=== PATIENT | male | born 1940 | race Caucasian/White ===

== ENCOUNTER → 2019-06-27 10:28 | Outpatient (CLI) | payer SELFPAY | PROVIDERS: Referring Provider Otolaryngology; Visit Provider Otolaryngology | DX: R59.1 Generalized enlarged lymph nodes (principal) ==

== ENCOUNTER → 2019-07-04 09:00 | Outpatient (CLI) | payer MEDICARE, SELFPAY ==
--- NOTE | 2019-07-03 | IMM_PTH ---
PATIENT: JERAMIE DE PAZ LOC: [facility] U#:[id number] AGE/SX: 84/M ROOM: RE07/04/[address]: Dr. Shan Noguera MD : 1940 BED: DIS: SPEC #: [id number] RECD: 07/07/19 10:01 STATUS: HASMUKH REQ #: [id number] RAJI: 07/03/19 00:[address]: Shan Noguera DEPT: IMMUNOHISTOCHEMISTRY RECD BY: Sima Giraldo ENTERED: 07/07/19 10:04 SP TYPE: IMMUNO OTHR DR: Dr. Dimas Hoffman MD Tissues: Lymph node of neck, NOS Procedures: BCL-2 (add) BCL-6 (add) CD138 (add) CD15 (add) CD20 (add) CD3 (add) CD30 (add) CD43 (add) CD45 (add) CD5 (add) CD79A (add) CYCLIN (add) KI-67 (add) P53 (add) MUM1 (add) C-MYC (add) Pankeratin (initial) PHYSICIAN & [address] [address] SPECIMEN INFORMATION: Tissue Source: FNA right neck nodes Clinical Info: Bilateral lymphadenopathy Specimen Number: [id number] CPT code: 06889, 51776 x16 METHODOLOGY: Deparaffinized sections of prefer/formalin-fixed tissue or PAP/DQ stained slides are incubated with monoclonal/polyclonal antibodies/oligonucleotide probes. Localization is made via biotin free immunoperoxidase method. Appropriate controls are performed and reacted as expected. Results on target cell population are indicated in the following table: RESULTS: ANTIBODY / CLONE RESULT AE1-3 (AE1/AE3/PCK26) negative CD3 (PS1) negative CD5 (SP10) negative CD20 (L26) positive, dim CD45 (RP2/18) positive CD79a (11E3) positive BCL-2 (bcl-2/100/D5) positive, dim BCL-6 (WN535B/A8) negative P53 (DO-7) negative Ki-67 (30-9) positive, 80% Cyclin D1/BCL-1 (SP4) negative MUM1 (MRQ-43) negative C-MYC (Y69) negative CD138 (B-A38) negative CD43 (L60) positive CD30 (Joel-H2) negative CD15 (MMA) negative These tests were developed and their performance characteristics determined by [facility]. They may not have been cleared or approved by the U.S. Food and Drug Administration. The FDA has determined that such clearance or approval is not necessary. The above immunohistochemical/dualISH markers are ordered and reviewed by the Pathologist. INTERPRETATION: Right neck mass, fine needle aspiration: Consistent with atypical lymphoproliferative disorder. AM:pauly 07/10/19 Case has been reviewed in consultation with Dr. Tafoya who concurs with the above diagnosis. IDC:SJ
--- NOTE | 2019-07-03 | ASPOS_PTH ---
PATIENT: JERAMIE DE PAZ LOC: [facility] U#:[id number] AGE/SX: 84/M ROOM: RE07/04/[address]: Dr. Shan Noguera MD : 1940 BED: DIS: SPEC #: [id number] RECD: 07/04/19 12:33 STATUS: HASMUKH RECornelia #: [id number] RAJI: 07/03/19 00:[address]: Shan Noguera DEPT: CYTOLOGY RECD BY: Perez Cordero ENTERED: 07/04/19 12:33 SP TYPE: ASP HERE OTHR DR: Dr. Dimas Hoffman MD Tissues: Lymph node, NOS Procedures: Surgery Specimen Level IV Cytology Other Fine Needle Asp on Site HEADER OPERATION: FNA neck nodes PRE-OP DIAGNOSIS: Bilateral lymphadenopathy TISSUE SUBMITTED: FNA right neck nodes DIAGNOSIS CYTOLOGY Fine needle aspiration, right neck mass (smears and cell block): Consistent with atypical lymphoproliferative disorder. AM:pauly 07/09/19 COMMENT The specimen is evaluated at the time of FNA by Dr. Nash. Immediate Evaluation = Polymorphous lymphocytes present. Immunohistochemistry (RF20-3) show the atypical cells to stain with CD20, CD79a and Bcl2 and consistent with atypical lymphocytes. FLOW analysis does not reveal monoclonal B-cells. An incisional/excisional biopsy is recommended if clinically indicated to better classify the lesion. Case has been reviewed in consultation with Dr. Tafoya who concurs with the above diagnosis. IDC:SJ CYTOLOGY STUDY Slides are reviewed. CYTOLOGY GROSS Received is 0.5 ml of reddish fluid labeled with the patient's name, and designated cervical lymph node. Four imprints and two paps are made from the submitted fluid and the rest is added to CytoLyt for cell block preparation. Submitted for cytology study. / AM:pauly 07/04/19 TC:0 CPT: 45512
== END ==
PROVIDERS: Family Provider Internal Medicine; PCP Internal Medicine; Referring Provider Otolaryngology; Visit Provider Otolaryngology
DX: R59.1 Generalized enlarged lymph nodes (principal)
CPT/HCPCS: 10021; 88161; 88305; 88341; 88342

== ENCOUNTER 2019-07-21 10:44 | Day surgery (SDC) | payer MEDICARE, SELFPAY ==
--- NOTE | 2019-07-21 | IMM_PTH ---
PATIENT: JERAMIE DE PAZ [place]: [facility] [place] U[place][id number] AGE/SX: 78/M ROOM: RE07/21/[address]: Dr. Shan Noguera MD : 1940 BED: DIS: 07/21/2019 SPEC #: [id number] RECD: 07/22/19 12:50 STATUS: SOUT REQ #: [id number] RAJI: 07/21/19 00:[address]: Shan Noguera DEPT: IMMUNOHISTOCHEMISTRY RECD BY: Sima Giraldo ENTERED: 07/22/19 12:52 SP TYPE: IMMUNO OTHR DR: Dr. Dimas Hoffman MD Tissues: Neck, NOS Procedures: BCL-2 (add) BCL-6 (add) CD10 (add) CD20 (add) CD23 (add) CD3 (add) CD30 (add) CD34 (add) CD43 (add) CD5 (add) CD79A (add) CK8 (add) CYCLIN (add) KI-67 (add) MUM1 (add) Pankeratin (initial) PHYSICIAN & [address] [address] SPECIMEN INFORMATION: Tissue Source: Left neck mass Clinical Info: Neck adenopathy Specimen Number: [id number] #2 CPT code: 16293, 90121 x15 METHODOLOGY: Deparaffinized sections of prefer/formalin-fixed tissue or PAP/DQ stained slides are incubated with monoclonal/polyclonal antibodies/oligonucleotide probes. Localization is made via biotin free immunoperoxidase method. Appropriate controls are performed and reacted as expected. Results on target cell population are indicated in the following table: RESULTS: ANTIBODY / CLONE RESULT Block 3 AE1-3 (AE1/AE3/PCK26) negative CK8 (88djiuK33) negative CD3 (PS1) negative CD5 (SP10) negative CD10 (56C6) negative CD20 (L26) positive CD23 (1B12) negative CD30 (Joel-H2) negative CD43 (L60) negative CD45 (RP2/18) positive CD79a (11E3) positive BCL-2 (bcl-2/100/D5) positive BCL-6 (DP191S/A8) positive, weak Cyclin D1/BCL-1 (SP4) negative MUM1 (MRQ-43) positive, <50%, weak Ki-67 (30-9) positive, high These tests were developed and their performance characteristics determined by [facility]. They may not have been cleared or approved by the U.S. Food and Drug Administration. The FDA has determined that such clearance or approval is not necessary. The above immunohistochemical/dualISH markers are ordered and reviewed by the Pathologist. 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 SJ:pauly 07/24/19 Case has been reviewed in consultation with Dr. Nash who concurs with the above diagnosis. IDC:AM
--- NOTE | 2019-07-21 | MASS_PTH ---
PATIENT: JERAMIE DE PAZ LOC: [facility] [place] U#:[id number] AGE/SX: 78/M ROOM: RE07/21/[address]: Dr. Shan Noguera MD : 1940 BED: DIS: 07/21/2019 SPEC #: [id number] RECD: 07/21/19 14:31 STATUS: HASMUKH SUZANNE #: [id number] RAJI: 07/21/19 00:[address]: Shan Noguera DEPT: SURGICAL PATHOLOGY RECD BY: Sima Giraldo ENTERED: 07/21/19 15:50 SP TYPE: Mass OTHR DR: Dr. 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 Flow cytometry studies from [facility] shows CD5-, CD10- clonal B-cell population, large cells. The complete report is viewable in patient's EMR. SJ:rg 07/24/19 COMMENT The specimen is evaluated at the time of biopsy by Dr. Tafoya. Immediate Evaluation = Lymph node tissue. Immunohistochemistry (RF20-67) supports the above diagnosis. Immunohistochemistry is not definitive for classification of germinal center versus non-germinal center cell origin. FISH studies can be performed if clinically indicated. Please notify the laboratory, if they are needed. Please make reference to previous specimen (C20-3) fine needle aspiration, right neck mass with diagnosis of consistent with atypical lymphoproliferative disorder. Case has been reviewed in consultation with Dr. Nash who concurs with the above diagnosis. IDC:AM MICROSCOPIC DESCRIPTION Slides are reviewed. GROSS DESCRIPTION Received fresh for frozen section diagnosis labeled with the patient's name is a specimen designated left neck mass. The specimen consists of a piece of ayala-pink soft tissue measuring 3 x 1.5 x 0.7 cm. A piece of tissue is submitted for flow cytometry study. Two touch imprints are prepared. The entire specimen is submitted in two cassettes. / KIERAN:pauly 07/21/19 TC:0 CPT: 99967, 37719
--- NOTE | 2019-07-21 10:51 | EKG12_ITS ---
Test Reason : PREOP Blood Pressure : / mmHG Vent. Rate : 094 BPM Atrial Rate : 094 BPM P-R Int : 160 ms QRS Dur : 084 ms QT Int : 346 ms P-R-T Axes : 000 -19 055 degrees QTc Int : 432 ms Sinus rhythm with marked sinus arrhythmia Nonspecific ST abnormality Abnormal ECG Confirmed by ELEAZAR PALAFOX, EDELMIRA ([id number]), editorial writer WILLIS WORRELL ([id number]) on 07/23/2019 11:14:29 AM Referred By: Shan Noguera Confirmed By:EDELMIRA BUSH MD
[2019-07-21 11:13] VITALS: BP 135/57; PULSE 92; RESP 16; TEMP 36.3; O2SAT 96; BMI 42.3
[2019-07-21 11:15] LABS: Hematocrit 42.1 % (40-54); Hemoglobin 13.6 g/dL (13.0-16.5); Mean Corp Hgb Conc 32.3 g/dL (32-36); Mean Corpuscular Hgb 29.2 pg (27.0-32.0); Mean Corpuscular Volume 90.5 fL (80-94); Mean Platelet Vol. 9.3 fl (6.2-12.0); Platelet Count 224 K/mm3 (150-450); RBC Distribution Width SD 43.1 fl (35.1-43.9); Red Blood Count 4.65 M/mm3 (4.6-6.2)
[2019-07-21 11:26] LABS: Anion Gap 10 (5-15); BUN 14 mg/dL (7-18); BUN/Creat Ratio 10.8 RATIO (10-20); Calcium,Total 9.7 mg/dL (8.5-10.1); Chloride 100 mmol/L (98-107); EST Glomerular Filtration Rate 57 mL/min (>60); Est Glom Filt Rate - Afr Amer 69 mL/min (>60); Estimated Creatinine Clearance 48.34 ml/min; Glucose 112 mg/dL (74-106); Potassium 4.4 mmol/L (3.5-5.1); Sodium Level 134 mmol/L (136-145)
[2019-07-21] MEDS: Lactated Ringers 1,000 ML 100 ML IV (11:31)
[2019-07-21] MEDS: Bacitracin 500 UNITS/GM PACKET (14:33)
--- NOTE | 2019-07-21 14:40 | DCINST_ITS ---
You will use the following diet at home:: Regular Discharge Activity: Return to Normal Activity Additional Activity Instructions:: Remove dressing on 07/23/19. Shower on 07/23/19 and get the incision wet. Apply antibiotic ointment twice a day. Allergies/Adverse Reactions: Allergies iodine Allergy (Verified 07/17/19 08:13) chest pressure Penicillins Allergy (Verified 07/17/19 08:13) Rash/itching Medications to take at Discharge Aspirin [Aspir 81] 81 mg PO DAILY 07/17/19 Latanoprost 0.005% [Xalatan Opthalmic] 1 drp EACH EYE QHS 07/17/19 Losartan/Hydrochlorothiazide [Losartan-Hctz 50-12.5 mg Tab] 1 ea PO DAILY 07/17/19 Omeprazole [Prilosec] 20 mg PO DAILY 07/17/19 Primary Care Physician: Dimas Hoffman [Primary Care Provider] - Test Results: Test results from this visit will be discussed in further detail at your follow- up appointment, if applicable.
--- NOTE | 2019-07-21 14:41 | OP.PCM_ITS ---
Report of Operation Date of Procedure: 07/21/19 Pre-Operative Diagnosis: neck adenopathy Post-Operative Diagnosis: same Surgery/Procedure Performed:: excision neck mass Description of Surgical Findings:: multiple pathologic lymph nodes Type of Anesthesia:: General Anesthesiologist: Griffin Arechiga Specimen's removed: lymph node Estimated Blood Loss (mL): minimal Description of Procedure: The patient was taken to the operating room on 07/21/2019. He was placed in supine position on the operating room table. He was given sufficient general endotracheal anesthesia. The left neck was prepped and draped sterilely. 1% lidocaine with epinephrine was injected into the skin overlying the intended incision. After sufficient vasoconstriction, a 3 cm incision was made with a 15 blade. This was carried down through the skin. Bipolar cautery was used for hemostasis. The platysma was identified and incised sharply. A subplatysmal plane was established sharply. Immediately there are multiple matted clusters of lymph nodes visualized. The most superficial lymph node was dissected sharply using scissors. It was completely stuck to deeper nodes. An artificial plane was established using scissors between those lymph nodes. In using sharp dissection, the lymph node was then delivered in its entirety. This was placed in saline and sent for lymph node protocol. Next I irrigated the wound with saline. Bipolar cautery was used for cautery. Yadira powder was placed for generalized oozing of the surrounding lymph nodes. Platysma was closed with 4-0 Vicryl. Subcutaneous tissues closed with 4-0 Vicryl. Skin was closed with 6-0 running nylon. Bacitracin and a pressure dressing were then applied. The pa tient was then awoken about the recovery room in stable condition.Blood loss minimal, replacement none. Sponge, needle and instrument count were correct at the end of procedure.
[2019-07-21 14:48] VITALS: BP 110/57; BP 135/57; PULSE 91; RESP 18; TEMP 36.5; O2SAT 95
[2019-07-21 15:00] VITALS: BP 115/52; BP 135/57; PULSE 90; RESP 16; O2SAT 94
[2019-07-21 15:15] VITALS: BP 113/52; BP 135/57; PULSE 90; RESP 16; O2SAT 93
[2019-07-21 15:30] VITALS: BP 116/52; BP 135/57; PULSE 92; RESP 16; TEMP 36.3; O2SAT 92
[2019-07-21 15:51] VITALS: BP 135/57
--- NOTE | 2019-08-07 02:23 | HP_ITS ---
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: No Is patient in pain?: No Allergies iodine Allergy (Verified 08/06/19 13:05) chest pressure Penicillins Allergy (Verified 08/06/19 13:05) Rash/itching Medications Latanoprost 0.005% [Xalatan Opthalmic] 1 drp EACH EYE QHS 07/17/19 [History Confirmed 08/06/19] Losartan/Hydrochlorothiazide [Losartan-Hctz 50-12.5 mg Tab] 1 ea PO DAILY 07/17/19 [History Confirmed 08/06/19] Omeprazole [Prilosec] 20 mg PO DAILY 07/17/19 [History Confirmed 08/06/19] PFSH Medical History Hemorrhoids (Acute) Non-Hodgkin lymphoma (Acute) Reflux gastritis (Acute) HTN (hypertension) (Chronic) Surgical History S/P appendectomy (Acute) S/P laparoscopic cholecystectomy (Acute) Social History (Updated 08/07/19 @ 14:28 by Jaylyn Shafer PA-C) Smoking Status: Former smoker alcohol intake: never HPI HPI HPI: JERAMIE DE PAZ, is a 78 M who presents to the office today for HPI HPI Surgical H&P: Yes HPI: JERAMIE DE PAZ, is a 78 M who presents to the office today for port-a-cath placement for chemotherapy. Patient was recently diagnosed with B cell lymphoma. Patient states he found a mass on the left neck one morning. He was evaluated by Dr. Noguera who performed an excision of the left neck mass approximately 2-3 weeks ago. Patient has since been evaluated by Dr. Estrada who recommended further testing one of which was a DVT study for leg swelling. Lower extremity duplex demonstrated extensive acute DVT of the left lower extremity. Patient was started on Lovenox. Patient stated he previously had a DVT of the right lower extremity years ago. Patient denies previous central line placement in either neck. He denies previous clavicle fracture. He denies having a previous port placed. He denies previous myocardial infarction, stroke and blood clots. He denies previous complications with anesthesia. He is right hand dominant. ROS General General: Yes weight change and fatigue; no appetite, colon cancer, breast cancer or weakness HEENT HEENT: Yes difficulty swallowing; no eye injury, eye surgery, swollen glands or hoarseness Endo Endocrine: No thyroid disease, diabetes mellitus, thyroid cancer, Hair loss, heat intolerance or cold intolerance Skin Skin: Yes changing moles; no rash Breast Breast: No left breast lump, right breast lump, nipple discharge, breast pain, abnormal mammogram, abnormal US or breast enlargement Musc Musculoskeletal: Yes back problems and arthritis; no rheumatoid arthritis, gout or joint pain Cardio Cardiovascular: Yes high blood pressure; no murmur, pacemaker, heart disease, atrial fibrillation, heart attack, heart stent, palpitations, shortness of breat with exertion or chest pain Psych Psychiatric: No depression, anxiety or hearing voices Resp Respiratory: No shortness of breath, Yes sleep apnea, No cough, No COPD, No asthma, No emphysema, No wheezing Gastro Gastrointestinal: No abdominal pain, No nausea or vomiting, No diarrhea, Yes constipation, No blood in stool, Yes acid reflux, Yes hemorrhoids, No ulcers, No gallbladder problem, No black,tarry stools Rickie Hematologic: Yes blood thinners, No blood disorders, No bleeding, No anemia, Yes blood clots Neuro Neurologic: No system reviewed and no additional complaints, except as docu, No as per HPI, No abnormal walking, No abnormal hearing, No abnormal movements, No abnormal speech, No behavioral changes, No burning sensations, No confusion, No seizure-like activity, No unsteadiness, No dizziness, No localized weakness, No frequent falls, No headache(s), No lack of coordination, No loss of vision, No memory loss, Yes numbness, No other visual disturbances, No radiating pain, No restless legs, No sensory deficit, No fainting, Yes tingling, No tremor(s), No weakness, No other Exam Const General: cooperative, healthy appearing, comfortable, no acute distress HENIL Head: normal to inspection Eyes General: appearance normal, both eyes and all related structures Neck Neck: normal visual inspection Neck mass: No Chest Breast Palpation: No nipple discharge Resp Effort & Inspection: normal respiratory effort Auscultation: clear to auscultation bilaterally Cardio Rate: regular rate Rhythm: regular rhythm Heart Sounds: no murmurs GI Inspection: normal to inspection Palpation: soft Auscultation: normal bowel sounds Skin General: no rashes or lesions noted Neuro General: no focal motor deficits, CN's II-XI intact bilaterally Extrem General: normal to inspection Psych Appearance: grossly normal Affect: normal affect Assessment & Plan Problems 1. Diffuse large B-cell lymphoma, unspecified body region C83.[address] Mae and Dr. Estrada have discussed this patient. Patient will have PICC line placed for 1st chemotherapy treatment due to his newly diagnosed extensive DVT. Patient has yet to start his Lovenox, which was highly encouraged to tack picker from the pharmacy today to be started tonight. We will plan for the patient to be scheduled in 3 weeks to have the port placed. Per patient, his treatments are once a week every 3 weeks. He will need to hold his Lovenox 1 day prior to the procedure if he is still on blood thinners. Dr. Mae will plan to perform a left port-a-cath placement. Patient is aware if the left side is not able to be accomplished, a right port-a-cath will be placed. Procedure details, risks and benefits have been explained to the patient and his . Surgery booklet and wash was given. Patient and have had the opportunity to ask and have questions answered. Patient verbally understands and agrees with the plan. Coding Level of Care Code Off vis,new,level 3 Diagnoses Diffuse large B-cell lymphoma, unspecified body region C83.30 ??B-cell lymphoma type: diffuse large B-cell ??Lymphoma site: unspecified region 08/07/19 1428 <Electronically signed by Jaylyn hammer PA-C> Date _ Jaylyn Shafer PA-C
== END 2019-07-21 16:01 | disposition home or self-care (01) ==
LOC: SDC 10:45 → AC 10:47
PROVIDERS: Family Provider Internal Medicine; PCP Internal Medicine; Referring Provider Otolaryngology; Visit Provider Otolaryngology
PROC: (CPT 42440; principal; 2019-07-21 12:45)
DX: C83.31 Diffuse large B-cell lymphoma, lymph nodes of head, face, and neck (principal); I10 Essential (primary) hypertension; K21.9 Gastro-esophageal reflux disease without esophagitis; Z87.891 Personal history of nicotine dependence; Z86.718 Personal history of other venous thrombosis and embolism; Z79.82 Long term (current) use of aspirin; Z79.899 Other long term (current) drug therapy
CPT/HCPCS: 00320; 38500; 36415; 80048; 85027; 88305; 88313; 88341; 88342; 93005; J7120; J2405

== ENCOUNTER → 2019-08-11 | Outpatient (CLI) | payer MEDICARE, SELFPAY ==
[2019-08-06 13:05] VITALS: BMI 38.2
--- NOTE | 2019-08-11 10:30 | PET_ITS ---
EXAMINATION: FDG PET-CT INDICATIONS: A 78-year-old male with history of lymphoma presenting for initial staging examination. COMPARISON EXAMINATION: None available INDEX LESION SIZE LUGANO SCORE SUV INTERPRETATION Bilateral-anterior lateral neck, pharyngeal mucosal space, hypopharynx, nasopharynx, axilla, retropectoral lymph nodes 24.3 x 34.1-mm (largest) (frame 286) 5 25.1 (max) Fulfills quantitative criteria for viable neoplasm Superior-subcarinal mediastinum, bilateral thoracic perihilum 14.5 x 28.4-mm (largest) (frame 209) 5 12.1 (max) Fulfills quantitative criteria for viable neoplasm Abdominal retroperitoneum, bilateral hemipelvic mesentery, inguinal regions 37.1 x 53.2-mm (largest) (frame 168) 5 11.3 (max) Fulfills quantitative criteria for viable neoplasm TECHNIQUE: Following the intravenous administration of 12.67 mCi of F-18 deoxyglucose via the left wrist, multiplanar image acquisitions of the neck, chest, abdomen and pelvis to level of mid thigh, obtained at one hour post radiopharmaceutical administration contemporaneously interpreted with the current CT of the neck, chest, abdomen and pelvis, to level of mid thigh, dated 08/11/2019 via coregistration reveals: BLOOD GLUCOSE LEVEL:?? 97 mg/dl?HEIGHT:?71 inches?WEIGHT: 274 lbs. FINDINGS: 1. Multifocal increased glucose metabolism is identified in the right-left axilla, and retropectoral lymph nodes, bilateral-lateral and anterior neck, as well as right-left pharyngeal mucosal space-tongue base, tonsillar pillars and nasopharynx. The calculated maximal standard uptake value is 25.1. The Lugano Deauville score is 5. The maximal axial diameter of the largest individual metabolic, morphologic abnormality is 24.3-mm (transverse) x 34.1-mm (AP). 2. Enhanced FDG concentration extends from the superior to subcarinal mediastinum, bilateral thoracic perihilum rendering a calculated maximal standard uptake value of 12.1. The Lugano Deauville score is 5. The maximal axial diameter of the largest individual hypermetabolic soft tissue density on review of CT of the chest dated 08/11/2019 is 14.5-mm (transverse) x 28.4-mm (AP). 3. Innumerable foci of increased FDG concentration are manifest in the shanon-hepatis, the upper-lower abdominal retroperitoneum, right-left hemipelvis, bilateral inguinal regions and upper abdomen in the retrocrural lymph node distributions. The calculated maximal standard uptake value is 11.3. The Lugano Deauville score is 5. The largest individual hypermetabolic soft tissue density demonstrates a maximal axial diameter of approximately 37.1-mm (transverse) x 53.2-mm (AP). 4. Normal physiologic distribution of the radiopharmaceutical is apparent in the hepatic (2.6) and splenic parenchyma, both renal units, bladder and visualized intestinal tract. The spleen demonstrates a maximal vertical dimension of 12.1-cm (normal<12.5-cm) with uniform radiopharmaceutical concentration with the calculated quantitative degree of uptake less than the hepatic reference. Pertinent CT findings are as follows: CHEST: There is atherosclerotic calcification defined in the thoracic aorta without evidence of dilatation-aneurysm formation. Coronary arterial calcification is observed. Mediastinal and bilateral axillary, retropectoral soft tissue densities demonstrate varying degrees of quantitatively significant increased FDG uptake. Calcified thoracic perihilar soft tissue is noted with adjacent glucose hypermetabolism. There are no parenchymal densities-nodules defined in the right and left hemithorax demonstrating discernible quantitatively significant increased FDG uptake. Nodular densities defined in the right lower posterior lung-right lower lobe are ametabolic. ABDOMEN AND PELVIS: The gallbladder is surgically absent. There is borderline fatty metamorphosis-steatosis defined in the hepatic parenchyma. There is atherosclerotic calcification defined in the abdominal aorta without evidence of dilatation-aneurysm formation. Pelvic arterial calcification is observed. Retained oral contrast is noted in the visualized intestinal tract. Cyst formation is observed in the right kidney with photopenia on the metabolic data set. SKELETAL: Degenerative changes are noted in the cervical, thoracic and lumbar spine. PET/PET/CT Tumor Base -Thigh Init IMPRESSION: 1. Multifocal increased radiopharmaceutical concentration observed in the bilateral-lateral and anterior neck, pharyngeal mucosal space, the hypopharynx, nasopharynx, the right-left axillary, bilateral retropectoral, mediastinal structures, right-left thoracic perihilum, the abdominal retroperitoneum, bilateral hemipelvic mesentery and inguinal lymph node distributions fulfill quantitative criteria for viable neoplasm. (Alexey et al, Journal of Clinical Oncology 32:3059, 2014). Electronic Signature Marco Renee D.O. Electronically Signed: Marco Renee DO at 17:17 EST Tel , Service support ,
== END | disposition home or self-care (01) ==
LOC: ONC 09:57
PROVIDERS: PCP Internal Medicine; Referring Provider Internal Medicine Hematology & Oncology; Visit Provider Internal Medicine Hematology & Oncology
DX: C83.38 Diffuse large B-cell lymphoma, lymph nodes of multiple sites (principal)
CPT/HCPCS: 78815; A9552

== ENCOUNTER 2019-08-12 07:45 | Outpatient (CLI) | payer MEDICARE, SELFPAY ==
[2019-08-06 13:05] VITALS: BMI 38.2
[2019-08-12] VITALS (8 sets, daily range): BP systolic 104–160; BP diastolic 45–101; PULSE 57–73; RESP 14–20; TEMP 36.4–37.1; O2SAT 94–98; BMI 38.3
--- NOTE | 2019-08-12 | IMM_PTH ---
PATIENT: JERAMIE DE PAZ LOC: [facility] U#:[id number] AGE/SX: 78/M ROOM: RE08/12/[address]: Dr. Luis Estrada DO : 1940 BED: DIS: 08/12/2019 SPEC #: [id number] RECD: 08/13/19 13:18 STATUS: SOUT REQ #: [id number] RAJI: 08/12/19 00:[address]: Luis Estrada DEPT: IMMUNOHISTOCHEMISTRY RECD BY: Sima Giraldo ENTERED: 08/18/19 13:22 SP TYPE: IMMUNO OTHR DR: Dr. Dimas Hoffman MD Tissues: A - Bone marrow of iliac crest Procedures: CD20 (add) CD45 (add) CD5 (add) CD79A (add) CD3 (initial) PHYSICIAN & INSTITUTION [place] [id number] SPECIMEN INFORMATION: Tissue Source: A - Bone marrow biopsy, core Clinical Info: DLBC/NHL Specimen Number: [id number] CPT code: 41838, 47305 x4 METHODOLOGY: Deparaffinized sections of prefer/formalin-fixed tissue or PAP/DQ stained slides are incubated with monoclonal/polyclonal antibodies/oligonucleotide probes. Localization is made via biotin free immunoperoxidase method. Appropriate controls are performed and reacted as expected. Results on target cell population are indicated in the following table: RESULTS: ANTIBODY / CLONE RESULT Block A CD3 (PS1) positive CD5 (SP10) positive CD20 (L26) positive CD79a (11E3) positive CD45 (RP2/18) positive These tests were developed and their performance characteristics determined by [facility]. They may not have been cleared or approved by the U.S. Food and Drug Administration. The FDA has determined that such clearance or approval is not necessary. The above immunohistochemical/dualISH markers are ordered and reviewed by the Pathologist. INTERPRETATION: A. Bone marrow biopsy, core: Interstitial infiltrates of small lymphocytes are noted, predominantly T-cell in nature, favor benign. SJ:pauly 08/18/19
[2019-08-12 08:10] LABS: Absolute Neutrophil Count 3.7 X10^3/uL (2.0-7.7); Basophil# 0.02 X10^3/uL; Basophil% 0.4 % (0-1); Eosinophil# 0.09 X10^3/uL; Eosinophils% 1.9 % (0-5); Hematocrit 37.4 % (40-54); Hemoglobin 12.4 g/dL (13.0-16.5); Lymphocyte % 8.5 % (19-41); Mean Corp Hgb Conc 33.2 g/dL (32-36); Mean Corpuscular Volume 90.6 fL (80-94); Mean Platelet Vol. 9.8 fl (6.2-12.0); Monocyte# 0.45 X10^3/uL; Monocyte% 9.6 % (0-10); NRBC Flagged by Analyzer 0 % (0-5); Neutrophil # 3.73 X10^3/uL (2.7-7.7); Neutrophil % 79.2 % (47-70); POSITIVE DIFFERENTIAL YES; Platelet Count 213 K/mm3 (150-450); RBC Distribution Width CV 13.5 % (11.6-14.6); Red Blood Count 4.13 M/mm3 (4.6-6.2); White Blood Count 4.7 K/mm3 (4.4-11.0)
[2019-08-12 08:12] LABS: Differential Indicated SCAN CRITERIA MET
[2019-08-12 08:20] LABS: Prothrombin Time (Protime)PT. 13.4 SECONDS (11.7-14.9)
--- NOTE | 2019-08-12 10:30 | BMB_PTH ---
PATIENT: JERAMIE DE PAZ LOC: [facility] U#:[id number] AGE/SX: 78/M ROOM: RE08/12/[address]: Dr. Luis Estrada DO : 1940 BED: DIS: 08/12/2019 SPEC #: [id number] RECD: 08/12/19 11:33 STATUS: HASMUKH REQ #: [id number] RAJI: 08/12/19 10:[address]: Luis Estrada DEPT: BONE MARROW RECD BY: Saira Haque ENTERED: 08/12/19 11:34 SP TYPE: BMB JAS DR: Dr. Dimas Hoffman MD Tissues: A - Bone marrow, NOS B - Bone marrow, NOS C - Bone marrow, NOS Procedures: Decalcification bone/plaque Bone Marrow Aspiration Bone Marrow Core Biopsy Iron Stain Bone Marrow HEADER OPERATION: Bone marrow biopsy and aspiration PRE-OP DIAGNOSIS: DLBC/NHL TISSUE SUBMITTED: A - Core, B - Clot, C - Smears, and send outs (flow, cytogenetics) BONE MARROW DIAGNOSIS Right hip bone marrow core, clot and aspirate smears: Normocellular marrow with trilineage hematopoiesis, negative for involvement by lymphoma. Iron - 4+, atypical or ringed sideroblasts are not seen. Flow cytometry study from [facility] shows no significant immunophenotypic abnormality. The complete report is viewable in patient's EMR. See comment. SJ:pauly 08/18/19 COMMENT The bone marrow core is limited in evaluation as it contains only a small amount of bone marrow core. Bone marrow aspirate clot consists of predominantly peripheral blood with scant marrow tissue with trilineage hematopoiesis. Correlation with clinical findings and appropriate follow up are necessary. 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 Case has been reviewed in consultation with Dr. Nash who concurs with the above diagnosis. IDC:AM BONE MARROW STUDY Slides are reviewed. CBC DATE: 08/12/19 WBC 4.7; RBC 4.13; HGB 12.4; HCT 37.4; MCV 90.6; RDW 13.5; PLTS 213,000 SEGS 79.2%; LYMPHS 8.5%; MONOS 9.6%; EOS 1.9%; BASOS 0.4% PERIPHERAL SMEAR: Submitted. RBC: Normocytic and normochromic. WBC: Unremarkable. The WBC count is compatible to as reported above. PLTS: Adequate. BONE MARROW ASPIRATE DIFFERENTIAL: 200 cell count. Blasts % (normal 0-2): 0 Promyelocytes % (normal 1-5): 2 Myelocytes and metamyelocytes % (normal 17-41): 16 Bands and Segs % (normal 15-32): 37 Eos % (normal 1-6): 3 Basos % (normal 0-1): 0 Monocytes % (normal 0-4): 0 Erythroid Precursors % (normal 17-35): 18 Lymphocytes % (normal 7-13): 18 Plasma Cells % (normal 0-2): 0 ASPIRATE FINDINGS: Site: Right hip Spicular, Cellular M/E ratio: 3.2 (Normal 1.5-4.0) Megakaryocytes: Present and normal morphology. Erythropoiesis: Normoblastic. Granulopoiesis: Progressive and unremarkable. Comment: Mild increase of small lymphocytes is noted. Significant increase of atypical large lymphocytes is not seen. CORE BIOPSY FINDINGS: Site: Right hip Adequacy: Limited Cellularity: 50-60% M/E ratio: Within normal limits. Megakaryocytes: Present and adequate in number. Bony trabeculae: Unremarkable. Granulomas: Absent. Lymphoid aggregate: Absent. Atypical infiltrate: Absent. Comment: Immunohistochemistry ([id number]) show interstitial infiltrates of small lymphocytes, predominantly T-cell in nature, favor benign. ASPIRATE CLOT FINDINGS: Site: Right hip Comment: The specimen predominantly consists of peripheral blood clot with scant marrow tissue showing trilineage hematopoiesis. SPECIAL STAINS WITH MATCHED CONTROLS: Iron: 4+, significant increase of atypical or ringed sideroblasts is not seen. Reticulin: No significant increase of reticulin fibers is noted. PAS: Highlights myeloid cells and megakaryocytes. BONE MARROW GROSS A - Received is a container labeled with the patient's name and designated CT-guided bone marrow biopsy right hip. The specimen consists of a minute piece of brownish soft tissue mixed with possible fragments of bone measuring 0.2 x 0.1 x 0.1 cm. The specimen is totally submitted in one cassette after decalcification. B - Received is one container labeled with the patient's name and not further designated. The specimen consists of approximately 8 cc of bloody fluid that on filtration yields multiple minute fragments of blood clots measuring in aggregate 3 x 2.5 x 0.3 cm. The specimen is totally submitted in one cassette. C - Also received are 12 unstained and 1 peripheral stained slides. The unstained slides are submitted for appropriate staining. Also received are two green top tubes which are sent to our reference lab for flow and cytogenetics. 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
--- NOTE | 2019-08-12 10:33 | CT_ITS ---
PROCEDURE: CT GUIDED BONE marrow biopsy. DATE: August 12, 2019 INDICATION: Male, 78 years old. B-cell lymphoma. PHYSICIAN: Lonnie Mares M.D. RADIATION DOSAGE (If Supplied By Facility): CTDIvol = ( 15 ) mGy, DLP = ( 1036.0 ) mGycm. Individualized dose augmentation techniques were utilized. PROCEDURE: The risks, benefits, and alternatives to the procedure were explained to the patient. The specific risk of hemorrhage requiring further treatment or intervention was detailed and accepted. Follow-up instructions were discussed with the patient as well. Written informed consent was obtained. The patient was brought into the CT suite and placed in the prone position. . An appropriate entry site was identified. The overlying skin was prepped and draped in the usual sterile fashion. 1% lidocaine was administered subcutaneously for local anesthesia. Conscious sedation was performed. The patient received 2 mg of Versed and 50 mcg of fentanyl. Conscious sedation was started at 10:46 AM and terminated at 11:05 AM. The patient was independently monitored by the department nurse. Under CT guidance, a bone marrow biopsy and bone marrow aspirate of the posterior aspect of the right iliac bone were performed The specimens were then placed in the appropriate fluid and transported to the laboratory for analysis. Hemostasis was obtained. The patient tolerated the procedure well without immediate complications. CT/Biopsy/Inj or Needle Placement IMPRESSION: Successful CT guided bone marrow biopsy and bone marrow aspirate, as described above. Electronically Signed: Lonnie Mares, at 12:39 EST , Service support ,
[2019-08-12] MEDS: Midazolam 2 MG/2 ML Syringe IV (10:46)
[2019-08-12] MEDS: fentaNYL 100 MCG/2 ML Ampul IV (10:46)
[2019-08-12] MEDS: 0.9% Saline Lock 10 ML Syringe IV (11:23)
--- NOTE | 2019-08-12 12:18 | NURSING ---
social research assistant Maricruz here to see pt
--- NOTE | 2019-08-12 12:30 | CASEMGMT ---
Social Work Outpatient: Radiology Department Reason for consult: financial concerns and associated travel for medical procedures. Summary: Met with patient at bedside. Patient's Lois and patient's brother also present. Patient reports concerns with being on a fixed income and having to drive from [facility] (home is close to [facility]) to [place] 2-3 times a week and the costs occurring with such. Patient reports the cost of gas is also an expense he is having difficulty with, as well as asking someone to help drive such a distance. Financial concerns - retired, receives 1100 a month of disability and receives social security at 755 a month. Patient and have a reverse mortgage and loans on their car. No savings. Housing: Lives with of over 50 years. Family dynamics: and reports a good relationship. No children. A brother 12 or 13 years younger than the patient who is supportive. Supports: , brother, orthodox. Neighbors have also offered to help when they can. Insurance: [employer] Medicare. Wary of Medicaid as had this before, over 10 years ago and had a spend down, and reportedly were overpaid for a time and had to pay much money back to the state [facility]. Family Doctor: Dr. Hoffman Specialty Doctor: Dr. Estrdaa Intervention: Explored options for transportation. Patient reports to think that things will be better soon as will only have to get to [place] every 3 weeks for Chemo and that patient's brother could help. The brother voiced that he will help when he can. Patient reports his orthodox may help too, but the time of appointments has been so inconvenient to others that patient has not asked for much help. Educated to hospital [facility] as a possibility but only transports to [facility] associated care. Patient reports to be meeting with Dr. Estrada later today to discuss plans for treatment, so will know more later. Explored financial: Educated that Medicaid also has a QMB program to help medicare beneficiaries with cost of copays and deductibles. Educated that this may be worth looking into. Educated to the [facility] as a potential resource, to a [facility] care consultation, which is free and may be able to help review all local options for help with the patient. Patient is open to a free consultation. Assessment: Patient pleasant and talkative. Expressed thanks for psychosocial rehabilitation counselor's time and looking into options. Patient with a positive outlook being voiced, but does express worry abut the future and not wanting to leave his (i.e. passing away due to current illness). Supportive listening provided. Plan: Call about hospital van and refer to [facility]. -ARMEN Dawson, VIDEO OPERATOR
--- NOTE | 2019-08-14 16:05 | CASEMGMT ---
Social Work Outpatient: Radiology Called [facility] transportation department. The van would go as far as patient's home so as long as there is availability to do so. Called the [facility] for [facility] at , option 1. Had to leave a message so requested a call back. Called the patient to update. Patient appreciative. Reports his brother will help with transport to [facility] through the [facility] offices. Still open to the intermediate care consultation through the [facility]. -ARMEN Dawson, RADIOLOGIC TECHNICIAN
== END 2019-08-12 12:40 | disposition home or self-care (01) ==
PROVIDERS: PCP Internal Medicine; Referring Provider Internal Medicine Hematology & Oncology; Visit Provider Internal Medicine Hematology & Oncology
DX: C83.38 Diffuse large B-cell lymphoma, lymph nodes of multiple sites (principal)
CPT/HCPCS: 38221; 36415; 36569; 77012; 85025; 85610; 88305; 88311; 88313; 88341; 88342; 99156; 99157; J7040; A4216

== ENCOUNTER 2019-09-03 10:54 | Observation (INO) | payer MEDICARE, SELFPAY ==
--- NOTE | 2019-08-07 02:23 | HP_ITS ---
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 Required: No Is patient in pain?: No Allergies iodine Allergy (Verified 08/06/19 13:05) chest pressure Penicillins Allergy (Verified 08/06/19 13:05) Rash/itching Medications Latanoprost 0.005% [Xalatan Opthalmic] 1 drp EACH EYE QHS 07/17/19 [History Confirmed 08/06/19] Losartan/Hydrochlorothiazide [Losartan-Hctz 50-12.5 mg Tab] 1 ea PO DAILY 07/17/19 [History Confirmed 08/06/19] Omeprazole [Prilosec] 20 mg PO DAILY 07/17/19 [History Confirmed 08/06/19] PFSH Medical History Hemorrhoids (Acute) Non-Hodgkin lymphoma (Acute) Reflux gastritis (Acute) HTN (hypertension) (Chronic) Surgical History S/P appendectomy (Acute) S/P laparoscopic cholecystectomy (Acute) Social History (Updated 08/07/19 @ 14:28 by Jaylyn Shafer PA-C) Smoking Status: Former smoker alcohol intake: never HPI HPI HPI: JERAMIE DE PAZ, is a 78 M who presents to the office today for HPI HPI Surgical H&P: Yes HPI: JERAMIE DE PAZ, is a 78 M who presents to the office today for port-a-cath placement for chemotherapy. Patient was recently diagnosed with B cell lymphoma. Patient states he found a mass on the left neck one morning. He was evaluated by Dr. Noguera who performed an excision of the left neck mass approximately 2-3 weeks ago. Patient has since been evaluated by Dr. Estrada who recommended further testing one of which was a DVT study for leg swelling. Lower extremity duplex demonstrated extensive acute DVT of the left lower extremity. Patient was started on Lovenox. Patient stated he previously had a DVT of the right lower extremity years ago. Patient denies previous central line placement in either neck. He denies previous clavicle fracture. He denies having a previous port placed. He denies previous myocardial infarction, stroke and blood clots. He denies previous complications with anesthesia. He is right hand dominant. ROS General General: Yes weight change and fatigue; no appetite, colon cancer, breast cancer or weakness HEENT HEENT: Yes difficulty swallowing; no eye injury, eye surgery, swollen glands or hoarseness Endo Endocrine: No thyroid disease, diabetes mellitus, thyroid cancer, Hair loss, heat intolerance or cold intolerance Skin Skin: Yes changing moles; no rash Breast Breast: No left breast lump, right breast lump, nipple discharge, breast pain, abnormal mammogram, abnormal US or breast enlargement Musc Musculoskeletal: Yes back problems and arthritis; no rheumatoid arthritis, gout or joint pain Cardio Cardiovascular: Yes high blood pressure; no murmur, pacemaker, heart disease, atrial fibrillation, heart attack, heart stent, palpitations, shortness of breat with exertion or chest pain Psych Psychiatric: No depression, anxiety or hearing voices Resp Respiratory: No shortness of breath, Yes sleep apnea, No cough, No COPD, No asthma, No emphysema, No wheezing Gastro Gastrointestinal: No abdominal pain, No nausea or vomiting, No diarrhea, Yes constipation, No blood in stool, Yes acid reflux, Yes hemorrhoids, No ulcers, No gallbladder problem, No black,tarry stools Rickie Hematologic: Yes blood thinners, No blood disorders, No bleeding, No anemia, Yes blood clots Neuro Neurologic: No system reviewed and no additional complaints, except as docu, No as per HPI, No abnormal walking, No abnormal hearing, No abnormal movements, No abnormal speech, No behavioral changes, No burning sensations, No confusion, No seizure-like activity, No unsteadiness, No dizziness, No localized weakness, No frequent falls, No headache(s), No lack of coordination, No loss of vision, No memory loss, Yes numbness, No other visual disturbances, No radiating pain, No restless legs, No sensory deficit, No fainting, Yes tingling, No tremor(s), No weakness, No other Exam Const General: cooperative, healthy appearing, comfortable, no acute distress HENWY Head: normal to inspection Eyes General: appearance normal, both eyes and all related structures Neck Neck: normal visual inspection Neck mass: No Chest Breast Palpation: No nipple discharge Resp Effort & Inspection: normal respiratory effort Auscultation: clear to auscultation bilaterally Cardio Rate: regular rate Rhythm: regular rhythm Heart Sounds: no murmurs GI Inspection: normal to inspection Palpation: soft Auscultation: normal bowel sounds Skin General: no rashes or lesions noted Neuro General: no focal motor deficits, CN's II-XI intact bilaterally Extrem General: normal to inspection Psych Appearance: grossly normal Affect: normal affect Assessment & Plan Problems 1. Diffuse large B-cell lymphoma, unspecified body region C83.[address] Mae and Dr. Estrada have discussed this patient. Patient will have PICC line placed for 1st chemotherapy treatment due to his newly diagnosed extensive DVT. Patient has yet to start his Lovenox, which was highly encouraged to spanish moss picker from the pharmacy today to be started tonight. We will plan for the patient to be scheduled in 3 weeks to have the port placed. Per patient, his treatments are once a week every 3 weeks. He will need to hold his Lovenox 1 day prior to the procedure if he is still on blood thinners. Dr. Mae will plan to perform a left port-a-cath placement. Patient is aware if the left side is not able to be accomplished, a right port-a-cath will be placed. Procedure details, risks and benefits have been explained to the patient and his . Surgery booklet and wash was given. Patient and have had the opportunity to ask and have questions answered. Patient verbally understands and agrees with the plan. Coding Level of Care Code Off vis,new,level 3 Diagnoses Diffuse large B-cell lymphoma, unspecified body region C83.30 ??B-cell lymphoma type: diffuse large B-cell ??Lymphoma site: unspecified region 08/07/19 1428 <Electronically signed by Jaylyn hammer PA-C> Date _ Jaylyn Shafer PA-C
--- NOTE | 2019-09-01 03:26 | HP_ITS ---
Intake Vital Signs 09/01/19 BMI 38.3 09/01/19 Height 5 ft 11 in 09/01/19 Weight: 256 lb 09/01/19 BMI 35.6 09/01/19 BP 96/65 09/01/19 Blood Pressure Location Rt brachial 09/01/19 Position Sitting 09/01/19 Respiration 18 Intake Visit Reasons: Update H/P Port Placement ELVIS Television Mechanic Required: No Is patient in pain?: No Allergies iodine Allergy (Verified 09/01/19 14:03) chest pressure Penicillins Allergy (Verified 09/01/19 14:03) Rash/itching Medications Latanoprost 0.005% [Xalatan Opthalmic] 1 drp EACH EYE QHS 07/17/19 [History Confirmed 09/01/19] Omeprazole [Prilosec] 20 mg PO DAILY 07/17/19 [History Confirmed 09/01/19] Enoxaparin Sodium [Lovenox] mg SQ BID 08/12/19 [History Confirmed 09/01/19] PFSH Medical History Hemorrhoids (Acute) Non-Hodgkin lymphoma (Acute) Reflux gastritis (Acute) HTN (hypertension) (Chronic) Social History (Updated 09/01/19 @ 15:31 by Jaylyn Shafer PA-C) Smoking Status: Former smoker alcohol intake: never HPI HPI HPI: JERAMIE DE PAZ, is a 78 M who presents to the office today for HPI HPI Surgical H&P: Yes HPI: JERAMIE DE PAZ, is a 78 M who presents to the office today for port-a-cath placement for chemotherapy. Patient was recently diagnosed with B cell lymphoma. Patient states he found a mass on the left neck one morning. He was evaluated by Dr. Noguera who performed an excision of the left neck mass approximately 2-3 weeks ago. Patient has since been evaluated by Dr. Estrada who recommended further testing one of which was a DVT study for leg swelling. Lower extremity duplex demonstrated extensive acute DVT of the left lower extremity. Patient was started on Lovenox. Patient stated he previously had a DVT of the right lower extremity years ago. Patient denies previous central line placement in either neck. He denies previous clavicle fracture. He denies having a previous port placed. He denies previous myocardial infarction, stroke and blood clots. He denies previous complications with anesthesia. He is right hand dominant. Patient has noted since his last visit at the beginning of August, he has had 2 hospitalizations following chemotherapy. Patient notes he was just discharged yesterday. He has been also receiving Neulasta following his treatments. Patient has continued to receive Lovenox for treatment of DVT. Patient has also lost 20 pounds since starting chemotherapy. ROS General General: Yes weight change and fatigue; no appetite, colon cancer, breast cancer or weakness HEENT HEENT: Yes difficulty swallowing; no eye injury, eye surgery, swollen glands or hoarseness Endo Endocrine: No thyroid disease, diabetes mellitus, thyroid cancer, Hair loss, heat intolerance or cold intolerance Skin Skin: Yes changing moles; no rash Breast Breast: No left breast lump, right breast lump, nipple discharge, breast pain, abnormal mammogram, abnormal US or breast enlargement Musc Musculoskeletal: Yes back problems and arthritis; no rheumatoid arthritis, gout or joint pain Cardio Cardiovascular: Yes high blood pressure; no murmur, pacemaker, heart disease, atrial fibrillation, heart attack, heart stent, palpitations, shortness of breat with exertion or chest pain Psych Psychiatric: No depression, anxiety or hearing voices Resp Respiratory: No shortness of breath, Yes sleep apnea, No cough, No COPD, No asthma, No emphysema, No wheezing Gastro Gastrointestinal: No abdominal pain, No nausea or vomiting, No diarrhea, Yes constipation, No blood in stool, Yes acid reflux, Yes hemorrhoids, No ulcers, No gallbladder problem, No black,tarry stools Rickie Hematologic: Yes blood thinners, No blood disorders, No bleeding, No anemia, Yes blood clots Neuro Neurologic: No weakness Exam Const General: cooperative, healthy appearing, comfortable, no acute distress [facility] Head: normal to inspection Eyes General: appearance normal, both eyes and all related structures Neck Neck: normal visual inspection Neck mass: No Chest Breast Palpation: No nipple discharge Resp Effort & Inspection: normal respiratory effort Auscultation: clear to auscultation bilaterally Cardio Rate: regular rate Rhythm: regular rhythm Heart Sounds: no murmurs GI Inspection: normal to inspection Skin General: no rashes or lesions noted Neuro General: no focal motor deficits, CN's II-XI intact bilaterally Extrem General: normal to inspection Psych Appearance: grossly normal Affect: normal affect Assessment & Plan Problems 1. Lymphoma of lymph nodes of multiple regions, unspecified lymphoma type C85.[address] Mae will plan to perform a left port-a-cath placement. Patient is aware if the left side is not able to be accomplished, a right port-a-cath will be placed. Hold Lovenox for 1 day prior to procedure. Procedure details, risks and benefits have been explained to the patient and his . Surgery booklet and wash was given. Patient and have had the opportunity to ask and have questions answered. Patient verbally understands and agrees with the plan. Coding Level of Care Code No Charge Diagnoses Lymphoma of lymph nodes of multiple regions, unspecified lymphoma type C85.98 ??Lymphoma type: unspecified type ??Lymphoma site: multiple regions Comment update H&P 09/01/19 1531 <Electronically signed by Jaylyn hammer PA-C> Date _ Jaylyn Shafer PA-C
[2019-09-01 14:05] VITALS: BMI 38.3
[2019-09-03] VITALS (17 sets, daily range): BP systolic 89–149; BP diastolic 46–97; PULSE 67–91; RESP 16–18; TEMP 36.4–36.9; O2SAT 95–100; BMI 37.1; BMI 37.3
[2019-09-03] MEDS: Lactated Ringers 1,000 ML 15 ML IV (06:31)
--- NOTE | 2019-09-03 06:34 | HP.PCM_ITS ---
Problem List (1) Lymphoma Status: Acute Qualifiers: Lymphoma type: unspecified type History and Physical Date of Admission: 09/03/19 Intake Visit Reasons: Update H/P Port Placement ELVIS [employer] Required: No Is patient in pain?: No Allergies iodine Allergy (Verified 09/01/19 14:03) chest pressure Penicillins Allergy (Verified 09/01/19 14:03) Rash/itching Medications Latanoprost 0.005% [Xalatan Opthalmic] 1 drp EACH EYE QHS 07/17/19 [History Confirmed 09/01/19] Omeprazole [Prilosec] 20 mg PO DAILY 07/17/19 [History Confirmed 09/01/19] Enoxaparin Sodium [Lovenox] mg SQ BID 08/12/19 [History Confirmed 09/01/19] PFSH Medical History Hemorrhoids (Acute) Non-Hodgkin lymphoma (Acute) Reflux gastritis (Acute) HTN (hypertension) (Chronic) Social History (Updated 09/01/19 @ 15:31 by Jaylyn Shafer PA-C) Smoking Status: Former smoker alcohol intake: never HPI HPI HPI: JERAMIE DE PAZ, is a 78 M who presents to the office today for HPI HPI Surgical H&P: Yes HPI: JERAMIE DE PAZ, is a 78 M who presents to the office today for port-a-cath placement for chemotherapy. Patient was recently diagnosed with B cell lymphoma. Patient states he found a mass on the left neck one morning. He was evaluated by Dr. Noguera who performed an excision of the left neck mass approximately 2-3 weeks ago. Patient has since been evaluated by Dr. Estrada who recommended further testing one of which was a DVT study for leg swelling. Lower extremity duplex demonstrated extensive acute DVT of the left lower extremity. Patient was st arted on Lovenox. Patient stated he previously had a DVT of the right lower extremity years ago. Patient denies previous central line placement in either neck. He denies previous clavicle fracture. He denies having a previous port placed. He denies previous myocardial infarction, stroke and blood clots. He denies previous complications with anesthesia. He is right hand dominant. Patient has noted since his last visit at the beginning of August, he has had 2 hospitalizations following chemotherapy. Patient notes he was just discharged yesterday. He has been also receiving Neulasta following his treatments. Patient has continued to receive Lovenox for treatment of DVT. Patient has also lost 20 pounds since starting chemotherapy. ROS General General: Yes weight change and fatigue; no appetite, colon cancer, breast cancer or weakness HEENT HEENT: Yes difficulty swallowing; no eye injury, eye surgery, swollen glands or hoarseness Endo Endocrine: No thyroid disease, diabetes mellitus, thyroid cancer, Hair loss, heat intolerance or cold intolerance Skin Skin: Yes changing moles; no rash Breast Breast: No left breast lump, right breast lump, nipple discharge, breast pain, abnormal mammogram, abnormal US or breast enlargement Musc Musculoskeletal: Yes back problems and arthritis; no rheumatoid arthritis, gout or joint pain Cardio Cardiovascular: Yes high blood pressure; no murmur, pacemaker, heart disease, atrial fibrillation, heart attack, heart stent, palpitations, shortness of breat with exertion or chest pain Psych Psychiatric: No depression, anxiety or hearing voices Resp Respiratory: No shortness of breath, Yes sleep apnea, No cough, No COPD, No asthma, No emphysema, No wheezing Gastro Gastrointestinal: No abdominal pain, No nausea or vomiting, No diarrhea, Yes constipation, No blood in stool, Yes acid reflux, Yes hemorrhoids, No ulcers, No gallbladder problem, No black,tarry stools Rickie Hematologic: Yes blood thinners, No blood disorders, No bleeding, No anemia, Yes blood clots Neuro Neurologic: No weakness Exam Const General: cooperative, healthy appearing, comfortable, no acute distress [facility] Head: normal to inspection Eyes General: appearance normal, both eyes and all related structures Neck Neck: normal visual inspection Neck mass: No Chest Breast Palpation: No nipple discharge Resp Effort & Inspection: normal respiratory effort Auscultation: clear to auscultation bilaterally Cardio Rate: regular rate Rhythm: regular rhythm Heart Sounds: no murmurs GI Inspection: normal to inspection Skin General: no rashes or lesions noted Neuro General: no focal motor deficits, CN's II-XI intact bilaterally Extrem General: normal to inspection Psych Appearance: grossly normal Affect: normal affect Assessment & Plan Problems 1. Lymphoma of lymph nodes of multiple regions, unspecified lymphoma type C85.[address] Mae will plan to perform a left port-a-cath placement. Patient is aware if the left side is not able to be accomplished, a right port-a-cath will be placed. Hold Lovenox for 1 day prior to procedure. Procedure details, risks and benefits have been explained to the patient and his . Surgery booklet and wash was given. Patient and have had the opportunity to ask and have questions answered. Patient verbally understands and agrees with the plan. Coding Level of Care Code No Charge Diagnoses Lymphoma of lymph nodes of multiple regions, unspecified lymphoma type C85.98 ??Lymphoma type: unspecified type ??Lymphoma site: multiple regions Comment update H&P 09/01/19 1531 <Electronically signed by Jaylyn hammer PA-C> Date _ Jaylyn Shafer PA-C Patient was reevaluated today. He has had previous left neck surgery. Will consider ongoing treatment options. We will tentatively consider placement of the port in the right internal jugular. Left internal jugular also possibility. We will proceed as noted. Eliseo Mae M.D., F.A.C.S.
--- NOTE | 2019-09-03 06:40 | DCINST_ITS ---
Discharge Diet: No Restrictions - Pain medication may cause nausea. You should typically eat light foods as you take your pain medication. You may remove resume your blood thinners tomorrow September 04, 2019. Discharge Activity: Return to Normal Activity, May Shower - Leave the bandage on for 2-3 days. When you remove the bandage, leave the steri-strips intact until they fall off. Additional Activity Instructions:: May not drive, work with heavy equipment, or sign legal documents for [address] if you are no longer taking narcotic pain medications. You may drive when you are no longer taking pain medications. Additional Dressing/Incision Instructions:: Leave the bandage on for 3-4 days. When you remove the bandage, leave the steri-strips on for one additional week Allergies/Adverse Reactions: Allergies iodine Allergy (Verified 09/03/19 06:14) chest pressure Penicillins Allergy (Verified 09/03/19 06:14) Rash/itching Medications to take at Discharge Latanoprost 0.005% [Xalatan Opthalmic] 1 drp EACH EYE QHS 07/17/19 Omeprazole [Prilosec] 20 mg PO DAILY 07/17/19 Enoxaparin Sodium [Lovenox] mg SQ BID 08/12/19 Primary Care Physician: Dimas Hoffman [Primary Care Provider] - Test Results: Test results from this visit will be discussed in further detail at your follow- up appointment, if applicable. Please Follow Up With: Eliseo Mae MD - [phone] When: Further office follow can be as needed
[2019-09-03] MEDS: Bupivacaine Mpf 0.5% 30 ML VIAL (07:25)
--- NOTE | 2019-09-03 07:53 | OP.PCM_ITS ---
Problem List (1) Lymphoma Status: Acute Qualifiers: Lymphoma type: unspecified type Report of Operation Date of Procedure: 09/03/19 Pre-Operative Diagnosis: left neck lymphoma Post-Operative Diagnosis: Same Surgery/Procedure Performed:: Right internal jugular 6 [place] PowerPort placement. Reference #[id number] Lot number. [id number]. expiry date 09/29/2020 Description of Surgical Findings:: Timeout and informed consent was obtained. 78-year-old gent was taken out from placement table underwent monitored anesthesia care. Clindamycin 900 mg was given intravenously. The right neck and chest were sterilely prepped and draped. 1% lidocaine mixed 50-50 with 0.5% Marcaine was used as a local anesthetic. Total of 10 cc was used. Under ultrasound guidance local was instilled overlying the right internal jugular vein. Micropuncture needle inserted. Micropuncture wire inserted fluoroscopy demonstrated good positioning. Local was instilled down upon the right anterior chest wall. A transverse incision was created. Electrocautery was used to make a subcutaneous pocket second intercostal space. The tubing was then tunneled from the chest to the neck site. Micropuncture sheath dilator was placed over the wire. The dilator and wire were removed and an 035 J-wire was inserted. Micropuncture sheath was removed. The introducing sheath dilator was placed. The dilator wire removed. The tubing was advanced through the sheath. The sheath was split. The catheter tip was positioned to be close to the SVC atrial junction. The catheter was amputated at length connected the port secured with port attachment device. The port was placed within the pocket and secured very with 2-0 silk. The skin edges were approximated up to 3-0 Vicryl subdermal stitches. The neck was closed with a opted 5-0 Vicryl subdermal stitch. Steri-Strips Telfa OpSite dressings applied. The port was accessed. It aspirated easily and flushed easily. It was flushed with 2 cc of heparinized saline. Sponge and instrument and needle counts were reported to surgically correct. Blood loss minimal. He tolerated the procedure well was taken the recovery room in satisfactory addition without apparent complication. Stat portable chest x- ray is pending. Specimens none. Drains none. Blood loss minimal. Eliseo Mae M.D., F.A.C.S. Type of Anesthesia:: Local MAC Anesthesiologist: Jennifer Riley
--- NOTE | 2019-09-03 08:05 | RAD_ITS ---
STUDY: X-RAY CHEST REASON FOR EXAM: Male, 78 years old. POST PORT PLACEMENT TECHNIQUE: Single AP portable view of the chest. COMPARISON: None. FINDINGS: A right-sided portacatheter has been placed. The tip is at the junction of the superior vena cava and right atrium. Mild increased markings at the lung bases slightly worse on the left side suggestive of atelectasis and/or scarring. There is no demonstrated pleural abnormality. Normal size heart. Normal mediastinum and jean paul. Normal visualized pulmonary arteries. There is atherosclerotic tortuosity of the aortic arch and descending thoracic aorta. There are diffuse degenerative changes of the visualized thoracic spine. Normal visualized ribs, clavicles, and shoulders. There is no demonstrated abnormality of the visualized soft tissue structures of the upper abdomen. RAD/Chest 1 View (Portable) IMPRESSION: The tip of the right shanon catheter is at the junction of the superior vena cava and right atrium. Electronically Signed: Lonnie Mares, at 8:43 EST , Service support ,
--- NOTE | 2019-09-03 08:56 | EKG12_ITS ---
Test Reason : ARRYTHMIA IN PACU Blood Pressure : / mmHG Vent. Rate : 089 BPM Atrial Rate : 234 BPM P-R Int : 000 ms QRS Dur : 084 ms QT Int : 386 ms P-R-T Axes : 000 -16 -68 degrees QTc Int : [address] & T wave abnormality, consider anterior ischemia Prolonged QT Abnormal ECG Confirmed by MARYSOL PALAFOX, UNIQUE ([id number]), editor school photograph MADELYN JOHNS ([id number]) on 09/08/2019 4:09:41 PM Referred By: Eliseo Mae Confirmed By:UNIQUE GREGG MD
[2019-09-03 09:20] LABS: BUN 7 mg/dL (7-18); Creatinine, Serum 0.76 mg/dL (0.70-1.30); EST Glomerular Filtration Rate 106 mL/min (>60); Estimated Creatinine Clearance 66.93 ml/min; Glucose 92 mg/dL (74-106)
[2019-09-03 09:21] LABS: Anion Gap 3 (5-15); BUN/Creat Ratio 9.2 RATIO (10-20); Calcium,Total 8.5 mg/dL (8.5-10.1); Chloride 108 mmol/L (98-107); Est Glom Filt Rate - Afr Amer 129 mL/min (>60); Potassium 3.5 mmol/L (3.5-5.1); Sodium Level 140 mmol/L (136-145)
--- NOTE | 2019-09-03 09:35 | ECHOCS_ITS ---
Reason For Study: Afib, Aflutter Procedure This was a 2D Doppler, Color Flow transthoracic echocardiogram. The study was technically difficult. Contrast injection was performed. Exam performed portable in patient room. Left Ventricle Normal size and thickness. The estimated ejection fraction is 65 %. Unable to assess diastolic dysfunction due to arrhythmia. No regional wall motion abnormalities noted. Right Ventricle Mildly dilated right ventricle. Normal systolic function. Atria The left atrium is moderately enlarged. Normal right atrium. Normal atrial septum. Mitral Valve Mild diffuse mitral valve thickening. Moderate mitral annular calcification extending into the posterior leaflet. Tricuspid Valve Normal tricuspid valve. Trivial tricuspid valve insufficiency. Right ventricular systolic pressure estimated to be 43 mmHg. Mild pulmonary hypertension. Aortic Valve Trisinus/trileaflet aortic valve. Mild diffuse aortic valve thickening. Pulmonic Valve The pulmonic valve is not well visualized. Great Vessels Calcified aortic root. Normal arch. The inferior vena cava is dilated. No collapse of the inferior vena cava. Pericardium/Pleural No pericardial effusion. MMode/2D Measurements & Calculations LVIDd: 4.9 cm IVSd: 0.98 cm Ao root diam: 3.1 cm LVIDs: 2.9 cm LVPWd: 0.96 cm RVDd: 3.8 cm FS: 41.1 % LAV(MOD-bp): 65.9 ml LA A4 area: 24.3 cm2 LA dimension(2D): 4.8 cm LAV(MOD-bp) Indexed: 27.7 ml/m2 LAV(MOD-sp2): 63.0 ml LAV(MOD-sp4): 67.5 ml RA A4 area: 15.1 cm2 Doppler Measurements & Calculations MV E max keeley: 128.5 cm/sec Ao V2 max: 177.9 cm/sec LV V1 max: 132.1 cm/sec Ao max P.7 mmHg LV V1 max P.0 mmHg Ao V2 mean: 124.5 cm/sec Ao mean P.9 mmHg Ao V2 VTI: 33.1 cm PA V2 max: 120.9 cm/sec TR max keeley: 262.4 cm/sec TR max P.5 mmHg Interpretation Summary The estimated ejection fraction is 65 %. Unable to assess diastolic dysfunction due to arrhythmia. Mildly dilated right ventricle. Trivial tricuspid valve insufficiency. Right ventricular systolic pressure estimated to be 43 mmHg. Mild pulmonary hypertension. Patient appears to be in atrial fibrillation. The study was technically difficult. There is no comparison study available. Contrast injection was performed. Ordering Physician: Ash Ceja Referring Physician: Dimas Hoffman Performed By: Bhakti Anand, MAKAYLACS, RVT
--- NOTE | 2019-09-03 10:55 | CON.PCM_ITS ---
Problem List (1) Atrial fibrillation Status: Acute (2) DVT (deep venous thrombosis) Status: Acute (3) Lymphoma Status: Acute Qualifiers: Lymphoma type: unspecified type Reason for Consult Date of Consultation: 09/03/19 Reason for Consultation: Atrial fibrillation, DVT, B-cell lymphoma History of Present Illness: The patient is a 78 year old M, nondiabetic, no previous cardiac history, no previous CVA, recently diagnosed with non-Hodgkin's B-cell lymphoma after finding a mass on the side of his neck. This was excised by Dr. Burns about 3 weeks ago and he has been referred to Dr. Estrada. In addition he was found to have an extensive DVT of his left lower extremity, and was placed on Lovenox therapy. There was some confusion as to his anticoagulation but it appears he is only been on Lovenox and not Eliquis. The patient was referred to Dr. Motta for Port-A-Cath placement which took place today. It was noted post operatively the patient had new onset atrial fibrillation with controlled ventricular response. The patient is completely asymptomatic and denies any chest pain, angina, shortness of breath or dyspnea. Postoperative chest x-ray demonstrates the tip of the catheter to be between the interface of the superior vena cava and the right atrium of the heart. Chest x- ray reviewed by myself as well. Patient also admits to previous palpitations in the past, but is never been diagnosed with atrial fibrillation per se. He denies previous stress test or catheterization or coronary disease. He does have hypertension and does not know if he has high cholesterol. EKG reviewed by me demonstrates atrial fibrillation with controlled ventricular response and newly present anterior ST segment depression and T wave inversion. No ST elevation noted. Echo is pending. [] Past Medical History Allergies/Adverse Reactions: Allergies iodine Allergy (Verified 09/03/19 06:14) chest pressure Penicillins Allergy (Verified 09/03/19 06:14) Rash/itching Home Medications: Ambulatory Orders Medication Instructions Recorded Latanoprost 0.005% [Xalatan 1 drp EACH EYE QHS 07/17/19 Opthalmic] Omeprazole [Prilosec] 20 mg PO DAILY 07/17/19 Enoxaparin Sodium [Lovenox] 100 mg SQ BID 08/12/19 Surgical History: no surgical history Smoking Status: Former smoker Review of Systems - Review of Systems General: Denies: Fever, Night Sweats, Fatigue Cardiovascular: Denies: Chest Discomfort, Shortness of Breath, Orthopnea, PND, Peripheral Edema, Palpitations, Lightheadedness, Dizziness, Near Syncope, Syncope Respiratory: Denies: Cough, Sputum Production, Hemoptysis Gastrointestinal: Denies: Hematemesis, Hematochezia, Melena Genitourinary: Denies: Dysuria, Hematuria Skin: Denies: Rash Subjectve: Patient laying in bed, no acute distress. Objective: Vital Signs Temp Pulse Resp BP Pulse Ox 97.5 F L 84 16 104/66 100 09/03/19 09:30 09/03/19 10:08 09/03/19 09:30 09/03/19 09:30 09/03/19 09:38 Oxygen Flow Rate (L/min) 5 Oxygen Delivery Method Room Air Weight: 267 lb 3.2 oz Body Mass Index (BMI) 37.3 Intake and Output for Last 24 Hours 09/01/19 09/02/19 09/03/19 23:59 23:59 23:59 Intake Total 1106 / 1106 Balance 1106 / 1106 General: Awake, Alert, Oriented x 3 HEENT: PERRL, EOMI, Sclera Non Icteric Neck: Supple, Good ROM, No Lymph Node Enlargement Lungs: Clear to auscultation Cardiovascular: Irregular Rhythm, Normal S1, Normal S2, No Murmurs, No Rubs, No Gallops Vascular: No Carotid Bruits, Normal Femoral Pulses, Normal Radial Pulses, Normal Dorsalis Pedal Pulse, Normal Posterior Tibial Pulses Abdomen: Bowel Sounds Present, Soft, Non Tender, No HSM, No Organomegaly Extremities: No Cyanosis, No Clubbing, No edema Neurological: No Focal Motor or Sensory Deficit 09/03/19 08:56: Troponin I < 0.015 09/03/19 08:56: Sodium 140, Potassium 3.5, Chloride 108 H, Carbon Dioxide 29.0, Anion Gap 3 L, BUN 7, Creatinine 0.76, Est GFR (MDRD) Af Amer 129, Est GFR (MDRD) Non-Af 106, BUN/Creatinine Ratio 9.2 L, Glucose 92, Calcium 8.5 Rhythm: Atrial fibrillation with controlled ventricular response. EKG: As above ECHO: Pending Stress Test: Cardiac Cath: PCI: CT Surgery: Holter monitor: EPS: PPM: CXR: Chest CT Scan: Assessment/Plan 1. Atrial fibrillation: The patient presents with newly discovered a symptomatic atrial fibrillation with controlled ventricular response immediately postoperatively after having a port placed for chemotherapy for newly diagnosed non-Hodgkin's B-cell lymphoma. The patient is completely asymptomatic at this time, and his heart rate is well controlled. His chest x-ray suggest that his tip of his catheter is between the superior vena cava and right atrial interface. I recommended the patient u ndergo a 2D echo with Doppler to determine if his catheter is somewhere inside the right atrium. If the catheter is inside the right atrium, it will need to be pulled back slightly to remove it from the right atrial cavity. If there is no evidence of right atrial catheter, would recommend ruling out for myocardial infarction with a troponin set x3, and continuing Lovenox therapy. The patient will require long-term anticoagulation therapy and either Lovenox or Eliquis form, given his paroxysmal atrial fibrillation and recently diagnosed DVT superimposed on his B-cell lymphoma which may promote a hypercoagulable state. In addition I recommend starting him on Toprol-XL 25 mg p.o. daily for heart rate control. If his troponins are negative, he may be discharged home and follow-up with me in the office in 2 weeks time. 2. Recommend checking his TSH and T4 as well. 3. Discussed with Dr. Medellin. Thank you very much for the opportunity to participate in the cardiac care of your patient. Consultation time took place between 1030 11 AM. Code Visit Inpatient E&M: 51278 Init Hosp L2
[2019-09-03 12:10] LABS: T4 Free Direct 1.21 ng/dL (0.76-1.46); Thyroid Stim Hormone (TSH) 1.08 uIU/mL (0.358-3.74)
--- NOTE | 2019-09-03 13:54 | PCM.HP.STD ---
Problem List (1) Lymphoma Status: Chronic Qualifiers: Lymphoma type: unspecified type (2) Atrial fibrillation Status: Acute (3) DVT (deep venous thrombosis) Status: Chronic History of Present Illness Date of Admission: 09/03/19 Chief Complaint: Atrial fibrillation. The patient is a 78 year old M who presents to the emergency room due to new onset atrial fibrillation. Patient underwent Port-A-Cath placement by Dr. Mae today due to recent diagnosis of B-cell lymphoma. He was found to have atrial fibrillation postoperatively. Patient reports history of skipped beats however he denies history of atrial fibrillation. He denies chest pain, palpitations, shortness of breath. He was also recently diagnosed with extensive left lower extremity DVT and is on therapeutic Lovenox. Patient requesting to go home, states he feels fine. Past Medical History Past Medical History (Chronic Problems): Chronic Problems (Last Reviewed 08/06/19 @ 13:04 by Cheryl Schultz) Lymphoma (Chronic) DVT (deep venous thrombosis) (Chronic) Medical History: Medical History (Last Reviewed 08/06/19 @ 13:04 by Cheryl Schultz) Hemorrhoids K64.9 Non-Hodgkin lymphoma C85.90 Reflux gastritis K29.60 HTN (hypertension) I10 Allergies iodine Allergy (Verified 09/03/19 06:14) chest pressure Penicillins Allergy (Verified 09/03/19 06:14) Rash/itching Home Medications: Ambulatory Orders Medication Instructions Recorded Latanoprost 0.005% [Xalatan 1 drp EACH EYE QHS 07/17/19 Opthalmic] Omeprazole [Prilosec] 20 mg PO DAILY 07/17/19 Enoxaparin Sodium [Lovenox] 100 mg SQ BID 08/12/19 Surgical History: Surgical History (Last Reviewed 09/03/19 @ 14:12 by Cande Liao NP-C) S/P appendectomy Z90.49 S/P laparoscopic cholecystectomy Z90.49 Surgical History: - - Port-A-Cath placement, left neck lymph node biopsy Psychiatric History: No pertinent psych hx Lives: Spouse/ Significant Other Smoking Status: Former smoker Alcohol: None Drugs: None - *Family History Maternal History Items: Heart Disease Paternal History Items: Heart Disease Review of Systems Constitutional: Denies: Chills, Fever, Weight Change HEENT: Denies: Head Aches, Sinus Congestion, Sinus Drainage Cardiovascular: Denies: Chest Pain, Palpitations Respiratory: Denies: Cough, Shortness of breath at rest, Sputum production Gastrointestinal: Denies: Abdominal Pain, Nausea, Vomiting Genitourinary: Denies: Dysuria Musculoskeletal: Denies: Joint Pain, Joint Tenderness Skin: Reports: - - Right chest postop dressing intact. Denies: Rash, Wounds Neurological: Denies: Numbness, Tingling, Focal weakness Psychiatric: Denies: Anxiety, Depression, Homicidal Ideations, Suicidal Ideations Hematologic/ Lymphatic: Denies: Easy Bruising, Easy Bleeding VTE Information - Inpt Only VTE Present on Admission: No VTE Mechan Device Prophylaxis: None VTE Pharm Prophylaxis ordered?: Yes Patient Problems: Active and Suspected Problems (Last Reviewed 08/06/19 @ 13:04 by Cheryl Schultz) Atrial fibrillation (Acute) - Physical Exam Vitals/I&O's: Vital Signs Temp Pulse Resp BP Pulse Ox 97.5 F L 82 16 108/53 L 98 09/03/19 11:30 09/03/19 11:30 09/03/19 11:30 09/03/19 11:30 09/03/19 11:30 Oxygen Flow Rate (L/min) 5 Oxygen Delivery Method Room Air Weight: 267 lb 3.2 oz Body Mass Index (BMI) 37.3 Intake and Output for Last 24 Hours 09/01/19 09/02/19 09/03/19 23:59 23:59 23:59 Intake Total 1106 / 1106 Balance 1106 / 1106 General: Alert, Oriented x3, Cooperative HEENT: Atraumatic, PERRLA, EOMI, Normocephalic Neck: Supple, No JVD, Negative Carotid Bruits Lungs: Clear to auscultation, Normal air movement Cardiovascular: - - Atrial fibrillation, rate controlled Abdomen: Bowel Sounds Present, Soft, Non Tender Extremities: No clubbing, No cyanosis, Capillary Refill Less than 3 Seconds, Edema - Nonpitting bilateral lower extremity, left slightly larger than right Skin: No rashes, No breakdown, - - Right chest dressing intact Musculoskeletal: No Tenderness to Palpation of Joints or Extremities Neurological: Cranial nerves II-XII grossly intact, Neuro grossly intact Psych/Mental Status: Normal Affect, Appropriate Laboratory Results 09/03/19 08:56: Troponin I < 0.015 09/03/19 08:56: Sodium 140, Potassium 3.5, Chloride 108 H, Carbon Dioxide 29.0, Anion Gap 3 L, BUN 7, Creatinine 0.76, Estim Creat Clear Calc 66.93, Est GFR (MDRD) Af Amer 129, Est GFR (MDRD) Non-Af 106, BUN/Creatinine Ratio 9.2 L, Glucose 92, Calcium 8.5 09/03/19 11:30: Troponin I < 0.015, TSH 1.08, Free T4 1.21 Current Medications Acetaminophen (Tylenol) 650 mg PO Q6H PRN PRN PRN Reason: Pain Score 1-10/10 Hydrocodone Bitart/Acetaminophen ([place] 5mg-325mg) 1 - 2 tablet PO Q4H PRN PRN PRN Reason: Pain Score 1-10/10 Lactated Ringer's () 1,000 mls @ 15 mls/hr IV .Q48H HI Last Infusion: 09/03/19 10:17 Dose: Infused Documented by: Sodium Chloride () 10 - 40 ml IV UD PRN PRN Reason: SALINE FLUSH Assessment/Plan All Active Problems (Last Reviewed 08/06/19 @ 13:04 by Cheryl Schultz) Atrial fibrillation (Acute) 1. New onset atrial fibrillation-cardiology following. Continue Toprol-XL 25 mg daily. Trend enzymes. Obtain echocardiogram. TSH within normal limits. Check mag. On therapeutic Lovenox due to recent DVT. Rate controlled. 2. B-cell lymphoma- following with Dr. Estrada. Port-A-Cath placement by Dr. Mae. 3. Recent diagnosis left lower extremity DVT-on therapeutic Lovenox. 4. GERD- continue PPI. 5. Hypertension-HCTZ/losartan recently discontinued due to hypotension. DVT prophylaxis-Lovenox subcu This patient was seen by ALBERT Powers under the supervision of Dr. Medellin.
--- NOTE | 2019-09-03 15:16 | DCINST_ITS ---
- Discharge Diagnoses Current Active Problems: Current Active and Chronic Problems (Last Reviewed 08/06/19 @ 13:04 by Cheryl Schultz) Lymphoma (Chronic) Atrial fibrillation (Acute) DVT (deep venous thrombosis) (Chronic) You will use the following diet at home:: No restrictions Discharge Activity: Return to Normal Activity, May Shower - Leave the bandage on for 2-3 days. When you remove the bandage, leave the steri-strips intact until they fall off. Additional Activity Instructions:: May not drive, work with heavy equipment, or sign legal documents for [address] if you are no longer taking narcotic pain medications. You may drive when you are no longer taking pain medications. Call your doctor if you observe: Shortness of breath, Dizziness, Fainting spells, Chest pain Additional Dressing/Incision Instructions:: Leave the bandage on for 3-4 days. When you remove the bandage, leave the steri-strips on for one additional week Allergies/Adverse Reactions: Allergies iodine Allergy (Verified 09/03/19 06:14) chest pressure Penicillins Allergy (Verified 09/03/19 06:14) Rash/itching Medications to take at Discharge Latanoprost 0.005% [Xalatan Opthalmic] 1 drp EACH EYE QHS 07/17/19 Omeprazole [Prilosec] 20 mg PO DAILY 07/17/19 Enoxaparin Sodium [Lovenox] 100 mg SQ BID 08/12/19 Metoprolol Succinate [Toprol Xl] 25 mg PO DAILY #30 tab.er.24h 09/03/19 The following prescriptions were given: Metoprolol Succinate [Toprol Xl] 25 mg PO DAILY #30 tab.er.24h Transmission Status: Pending to [id number] Primary Care Physician: Dimas Hoffman [Primary Care Provider] - Please follow up with your Primary Care Physician in: 1 Week Test Results: Test results from this visit will be discussed in further detail at your follow- up appointment, if applicable. Please Follow Up With: Eliseo Mae MD - [phone] When: Further office follow can be as needed Please Follow Up With: Luis sEtrada DO When: As scheduled Please Follow Up With: Ash Ceja MD When: 2 Weeks Proposed Discharge Date: 09/03/19
--- NOTE | 2019-09-03 15:18 | PCM.DC.SUM ---
Discharge Date and Diagnosis Date of Admission: 09/03/19 Date of Discharge: 09/03/19 - Primary Discharge Diagnosis Active and Suspected Problems (Last Reviewed 08/06/19 @ 13:04 by Cheryl Schultz) 1. New onset atrial fibrillation 2. B-cell lymphoma 3. Recent diagnosis left lower extremity DVT 4. GERD 5. Hypertension - Secondary Discharge Diagnosis Chronic Problems (Last Reviewed 08/06/19 @ 13:04 by Cheryl Schultz) Lymphoma (Chronic) DVT (deep venous thrombosis) (Chronic) Hospital Course and Treatment Imaging Results: Diagnostic Data Chest X-Ray 09/03/19 08:05 IMPRESSION: The tip of the right shanon catheter is at the junction of the superior vena cava and right atrium. Electronically Signed: Lonnie Suzan, at 8:43 EST , Service support , Dr. Ceja- Cardiology Operations: None Procedures: 2-D Echocardiogram Summary of Care Provided: The patient is a 78 year old M admitted 09/03/2019 due to new onset atrial fibrillation postoperatively following Port-A-Cath placement. 1. New onset atrial fibrillation-cardiology, Dr. Ceja consulted during admission. Initiated on Toprol-XL 25 mg daily. Troponin negative. On therapeutic Lovenox due to recent DVT. Rate controlled. TSH within normal limits. Echocardiogram demonstrates an EF of 65%, RVSP estimated to be 43 mmHg. Follow-up with cardiology in 2 weeks. 2. B-cell lymphoma- following with Dr. Estrada. Port-A-Cath placement by Dr. Mae. 3. Recent diagnosis left lower extremity DVT-on therapeutic Lovenox. 4. GERD- continue PPI. 5. Hypertension-HCTZ/losartan recently discontinued due to hypotension. General: Alert, Oriented x3, Cooperative HEENT: Atraumatic, PERRLA, EOMI, Normocephalic Neck: Supple, No JVD, Negative Carotid Bruits Lungs: Clear to auscultation, Normal air movement Cardiovascular: - - Atrial fibrillation, rate controlled Abdomen: Bowel Sounds Present, Soft, Non Tender Extremities: No clubbing, No cyanosis, Capillary Refill Less than 3 Seconds, Edema - Nonpitting bilateral lower extremity, left slightly larger than right Skin: No rashes, No breakdown, - - Right chest dressing intact Musculoskeletal: No Tenderness to Palpation of Joints or Extremities Neurological: Cranial nerves II-XII grossly intact, Neuro grossly intact Psych/Mental Status: Normal Affect, Appropriate Patient seen and examined prior to discharge. Physical assessment as noted above. Patient is stable for discharge with follow up recommendations as noted above. This patient was seen by ALBERT Powers under the supervision of Dr. Medellin. - Physical Exam Vitals/I&O's: Vital Signs Temp Pulse Resp BP Pulse Ox 97.5 F L 75 18 100/51 L 99 09/03/19 13:30 09/03/19 15:02 09/03/19 13:30 09/03/19 13:30 09/03/19 13:30 Oxygen Flow Rate (L/min) 5 Oxygen Delivery Method Room Air Weight: 267 lb 3.2 oz Body Mass Index (BMI) 37.3 Intake and Output for Last 24 Hours 09/01/19 09/02/19 09/03/19 23:59 23:59 23:59 Intake Total 1106 / 1106 Balance 1106 / 1106 Laboratory Results 09/03/19 08:56: Troponin I < 0.015 09/03/19 08:56: Sodium 140, Potassium 3.5, Chloride 108 H, Carbon Dioxide 29.0, Anion Gap 3 L, BUN 7, Creatinine 0.76, Estim Creat Clear Calc 66.93, Est GFR (MDRD) Af Amer 129, Est GFR (MDRD) Non-Af 106, BUN/Creatinine Ratio 9.2 L, Glucose 92, Calcium 8.5 09/03/19 11:30: Troponin I < 0.015, TSH 1.08, Free T4 1.21 Current Medications Acetaminophen (Tylenol) 650 mg PO Q6H PRN PRN PRN Reason: Pain Score 1-10/10 Hydrocodone Bitart/Acetaminophen ([place] 5mg-325mg) 1 - 2 tablet PO Q4H PRN PRN PRN Reason: Pain Score 1-10/10 Lactated Ringer's () 1,000 mls @ 15 mls/hr IV .Q48H HI Last Infusion: 09/03/19 10:17 Dose: Infused Documented by: Sodium Chloride () 10 - 40 ml IV UD PRN PRN Reason: SALINE FLUSH Discharge Diet: No Restrictions - Pain medication may cause nausea. You should typically eat light foods as you take your pain medication. You may remove resume your blood thinners tomorrow September 04, 2019. Discharge Activity: Return to Normal Activity, May Shower - Leave the bandage on for 2-3 days. When you remove the bandage, leave the steri-strips intact until they fall off. Additional Activity Instructions:: May not drive, work with heavy equipment, or sign legal documents for [address] if you are no longer taking narcotic pain medications. You may drive when you are no longer taking pain medications. Call your doctor if you observe: Shortness of breath, Dizziness, Fainting spells, Chest pain Additional Dressing/Incision Instructions:: Leave the bandage on for 3-4 days. When you remove the bandage, leave the steri-strips on for one additional week Home Medications: Medications to take at Discharge Latanoprost 0.005% [Xalatan Opthalmic] 1 drp EACH EYE QHS 07/17/19 Omeprazole [Prilosec] 20 mg PO DAILY 07/17/19 Enoxaparin Sodium [Lovenox] 100 mg SQ BID 08/12/19 Metoprolol Succinate [Toprol Xl] 25 mg PO DAILY #30 tab.er.24h 09/03/19 Following Prescrptions Were Given to Patient: Metoprolol Succinate [Toprol Xl] 25 mg PO DAILY #30 tab.er.24h Transmission Status: Pending to [id number] Primary Care Physician: Dimas Hoffman [Primary Care Provider] - Please follow up with your Primary Care Physician in: 1 Week Please Follow Up With: Eliseo Mae MD - [phone] When: Further office follow can be as needed Please Follow Up With: Luis Estrada DO When: As scheduled Please Follow Up With: Ash Ceja MD When: 2 Weeks Disposition: Home Minutes spent on discharge:: 35 Patient Condition:: Stable Medical Necessity - Tobacco Use Smoking Status: Former smoker Meaningful Use Info Meaningful Use Diagnoses (Choose all that apply): None applicable
== END 2019-09-03 15:17 | disposition home or self-care (01) ==
LOC: SDC 11:31 → PCU 11:42
PROVIDERS: Anesthesiology; Internal Medicine Cardiovascular Disease; Admitting Provider Internal Medicine; PCP Internal Medicine; Referring Provider Surgery; Visit Provider Surgery
PROC: (CPT 36561; principal; 2019-09-03 07:00)
DX: I97.191 Other postprocedural cardiac functional disturbances following other surgery (principal); I48.0 Paroxysmal atrial fibrillation; Z45.2 Encounter for adjustment and management of vascular access device; C85.11 Unspecified B-cell lymphoma, lymph nodes of head, face, and neck; K21.9 Gastro-esophageal reflux disease without esophagitis; I82.402 Acute embolism and thrombosis of unspecified deep veins of left lower extremity; I10 Essential (primary) hypertension; Z79.01 Long term (current) use of anticoagulants; Z86.718 Personal history of other venous thrombosis and embolism; Z79.899 Other long term (current) drug therapy; Z87.891 Personal history of nicotine dependence; Y83.8 Other surgical procedures as the cause of abnormal reaction of the patient, or of later complication, without mention of misadventure at the time of the procedure; Y92.239 Unspecified place in hospital as the place of occurrence of the external cause; I07.1 Rheumatic tricuspid insufficiency
CPT/HCPCS: 00532; 36561; 36415; 71045; 77001; 80048; 84439; 84443; 84484; 93005; 93306; 99218; 99406; J7120; Q9957; A4216; C8929; G0378; G0379; J2405

== ENCOUNTER → 2019-11-04 | Outpatient (CLI) | payer MEDICARE, SELFPAY ==
[2019-10-02 09:18] VITALS: BMI 37.5
== END | disposition home or self-care (01) ==
LOC: PSN 08:54
PROVIDERS: PCP Internal Medicine; Referring Provider Nurse Practitioner Family; Visit Provider Nurse Practitioner Family
DX: I48.19 Other persistent atrial fibrillation (principal)
CPT/HCPCS: 93225; 93226

== ENCOUNTER → 2019-11-19 07:51 | Outpatient (CLI) | payer MEDICARE, SELFPAY ==
[2019-10-02 09:18] VITALS: BMI 37.5
--- NOTE | 2019-11-20 11:09 | PFT ---
INTRODUCTION: The patient is a 79-year-old male who presents for pulmonary function studies secondary to a diagnosis of non-Hodgkin's lymphoma. Respiratory therapy reports good patient effort. Bronchodilators were used during testing. INTERPRETATION: Forced expiration spirometry demonstrates no evidence of a large airways obstructive ventilatory defect. There was no significant response to aerosolized bronchodilators, based upon strict ATS criteria. Spirograms are of fair quality and plateau normally. Body plethysmography was performed and reveals a decreased TLC to 5.01 L, 78% of predicted, indicative of a mild restrictive ventilatory impairment. Diffusing capacity by single breath CO is reduced as well. IMPRESSION: Mild restrictive ventilatory impairment with symmetric reduction in diffusing capacity.
== END ==
PROVIDERS: PCP Internal Medicine; Referring Provider Internal Medicine Hematology & Oncology; Visit Provider Internal Medicine Hematology & Oncology
DX: R91.8 Other nonspecific abnormal finding of lung field (principal); C83.38 Diffuse large B-cell lymphoma, lymph nodes of multiple sites
CPT/HCPCS: 94060; 94726; 94729

== ENCOUNTER → 2019-12-08 09:34 | Outpatient (CLI) | payer MEDICARE, SELFPAY ==
[2019-10-02 09:18] VITALS: BMI 37.5
--- NOTE | 2019-12-08 08:30 | PET_ITS ---
EXAMINATION: FDG PET-CT INDICATIONS: A 79-year-old male with history of lymphoma presenting for restaging examination. COMPARISON EXAMINATION: FDG PET study dated 08/11/2019 TECHNIQUE: Following the intravenous administration of 15.42 mCi of F-18 deoxyglucose via the left antecubital fossa, multiplanar image acquisitions of the neck, chest, abdomen and pelvis to level of mid thigh, obtained at one hour post radiopharmaceutical administration contemporaneously interpreted with the current CT of the neck, chest, abdomen and pelvis, to level of mid thigh, dated 12/08/2019 via coregistration and FDG PET study dated 08/11/2019 reveals: BLOOD GLUCOSE LEVEL:?? 116 mg/dl?HEIGHT:?71 inches?WEIGHT: 255 lbs. FINDINGS: 1. There is no quantitative scintigraphic evidence of abnormal increased glucose metabolism on meticulous inspection of whole body acquisitions to include all three axis reconstructions. 2. Normal physiologic distribution of the radiopharmaceutical is apparent in the hepatic and splenic parenchyma, both renal units, bladder and visualized intestinal tract. The visualized portion of the cerebral cortex demonstrate symmetric and preserved glucose metabolism. Diffuse radiopharmaceutical concentration is noted in all four quadrants of the abdomen and pelvis. Prominent radiopharmaceutical concentration is observed in the nasopharynx which appears contiguous to the longus capitis musculature most consistent with physiologic tracer distribution. All previously defined metabolic abnormalities noted on the FDG PET study dated 08/11/2019 are not apparent on the current examination. Soft tissue densities localized to the bilateral anterior hemipelvis-subcutaneous fat reveal no evidence of facilitated FDG uptake. Phuc-cath placement is noted. Previously defined morphologic-anatomic changes noted on review of CT of the neck, chest, abdomen and pelvis on the FDG PET-CT report dated 08/11/2019, are essentially unchanged on the current examination. PET/PET/CT Tumor Base -Thigh Subs IMPRESSION: 1. NEGATIVE EXAMINATION. There is no definitive quantitative scintigraphic evidence of recurrent/viable neoplasm. 2. There is interval metabolic resolution of all previously identified hypermetabolic abnormalities. 3. Overall, compared to the prior FDG PET study dated 08/11/2019, there is current absence of defined viable neoplastic disease with an interval quantitative complete metabolic response relating to all previously defined hypermetabolic foci. Electronic Signature Marco Renee D.O. Electronically Signed: Marco Renee DO at 17:01 EDT Tel , Service support ,
== END ==
PROVIDERS: PCP Internal Medicine; Referring Provider Internal Medicine Hematology & Oncology; Visit Provider Internal Medicine Hematology & Oncology
DX: C83.38 Diffuse large B-cell lymphoma, lymph nodes of multiple sites (principal)
CPT/HCPCS: 78815; A9552